=== PATIENT | female | born 1975 | race Hispanic/Latino ===

== ENCOUNTER 2018-11-19 11:23 | Emergency (ER) | payer SELFPAY ==
[2018-11-19 11:41] LABS: APPEARANCE,URINE SL CLOUDY (CLEAR); BILIRUBIN,URINE NEGATIVE (NEGATIVE); COLOR,URINE YELLOW (YELLOW); GLUCOSE, URINE (UA) NEGATIVE (NEGATIVE); KETONES,URINE NEGATIVE (NEGATIVE); LEUKOCYTE ESTERASE ,URINE NEGATIVE (NEGATIVE); NITRATE,URINE NEGATIVE (NEGATIVE); OCCULT BLOOD,URINE LARGE (NEGATIVE); PROTEIN,URINE TRACE mg/dL (NEGATIVE); UROBILINOGEN,URINE 0.2 mg/dL (0.2-1.0)
[2018-11-19 11:51] LABS: RBC,URINE TNTC /HPF (0-1); WBC,URINE 0-1 /HPF (0-1)
[2018-11-19 11:52] LABS: BACTERIA,URINE Rare /HPF (None Seen); SQUAMOUS EPITHELIAL CELL,UR Rare /HPF (0-2)
[2018-11-19] MEDS ORDERED: DICYCLOMINE HCL 20 MG TAB ONE (12:03)
[2018-11-19 12:07] LABS: BASOPHILS % (AUTO) 1.1 % (0.0-5.0); EOSINOPHILS % (AUTO) 1.2 % (0.0-8.0); HEMATOCRIT 27.2 % (36-48); LYMPHOCYTES % (AUTO) 29.3 % (21.0-51.0); MEAN CORPUSCULAR VOLUME 63.3 fL (79-99); MONOCYTES % (AUTO) 7.2 % (3.0-13.0); NEUTROPHILS % (AUTO) 61.2 % (40.0-77.0); PLATELET COUNT (AUTO) 499 K/uL (130-400); RED CELL DISTRIBUTION WIDTH 18.9 % (11.0-15.5); WHITE BLOOD COUNT (AUTO) 7.4 K/uL (4.8-10.8)
[2018-11-19 12:33] LABS: INR 0.95 (0.85-1.15); PARTIAL THROMBOPLASTIN TIME 25.2 SEC (26.3-35.5)
[2018-11-19 13:02] LABS: CREATININE 0.5 mg/dL (0.5-1.5); POTASSIUM 3.5 mmol/L (3.5-5.1)
[2018-11-19 13:06] LABS: ALBUMIN 3.5 g/dL (3.5-5.0); BILIRUBIN,TOTAL 0.2 mg/dL (0.2-1.0); TOTAL PROTEIN, SERUM 8.1 g/dL (6.0-8.3)
== END 2018-11-19 14:51 | disposition home or self-care (01) ==
LOC: EDH 11:23
DX: M54.5 Low back pain (principal); R10.9 Unspecified abdominal pain
CPT/HCPCS: 36415; 74176; 80053; 81001; 81025; 83690; 85025; 85610; 85730

== ENCOUNTER 2020-02-26 15:00 | Inpatient (IN) | payer SELFPAY ==
[~2020-02-26] VITALS: Ht 157.5 cm; Wt 70.0 kg
[2020-02-26 16:20] LABS: BASOPHILS % (AUTO) 0.5 % (0.0-5.0); EOSINOPHILS % (AUTO) 1.5 % (0.0-8.0); NUCLEATED RED BLOOD CELLS 0.3 % (0.0-0.19)
[2020-02-26 16:25] LABS: LYMPHOCYTES % (AUTO) 25.5 % (21.0-51.0); MEAN CORPUSCULAR HEMOGLOBIN 15.6 pg (27.0-33.0); MEAN CORPUSCULAR HGB CONC 24.9 g/dL (32.0-36.0); MEAN CORPUSCULAR VOLUME 62.5 fL (79-99); MONOCYTES % (AUTO) 7.2 % (3.0-13.0); NEUTROPHILS % (AUTO) 65.1 % (40.0-77.0); PLATELET COUNT (AUTO) 665 K/uL (130-400); RED BLOOD CELL COUNT(AUTO) 3.15 MIL/uL (4.00-5.50); RED CELL DISTRIBUTION WIDTH 20.9 % (11.0-15.5); WHITE BLOOD COUNT (AUTO) 8.8 K/uL (4.8-10.8)
[2020-02-26 16:29] LABS: HEMATOCRIT 19.7 % (36-48)
[2020-02-26 16:34] LABS: CREATININE 0.5 mg/dL (0.5-1.5); POTASSIUM 3.6 mmol/L (3.5-5.1)
[2020-02-26 16:36] LABS: INR 0.94 (0.85-1.15); PARTIAL THROMBOPLASTIN TIME 21.2 SEC (26.3-35.5); PROTHROMBIN TIME 10.2 SEC (9.6-11.6)
[2020-02-26 16:42] LABS: ALBUMIN 3.6 g/dL (3.5-5.0); BILIRUBIN,TOTAL 0.3 mg/dL (0.2-1.0); TOTAL PROTEIN, SERUM 8.4 g/dL (6.0-8.3)
[2020-02-26 16:55] LABS: APPEARANCE,URINE Cloudy (CLEAR); BILIRUBIN,URINE Negative (NEGATIVE); COLOR,URINE Yellow (YELLOW); GLUCOSE, URINE (UA) Negative (NEGATIVE); KETONES,URINE Trace mg/dL (NEGATIVE); LEUKOCYTE ESTERASE ,URINE Trace (NEGATIVE); NITRATE,URINE Negative (NEGATIVE); OCCULT BLOOD,URINE Large (NEGATIVE); PH,URINE 5.5 (5.0-8.0); PROTEIN,URINE Negative (NEGATIVE); UROBILINOGEN,URINE 0.2 mg/dL (0.2-1.0)
[2020-02-26 17:14] LABS: BACTERIA,URINE Few /HPF (None Seen); MUCUS,URINE Few LPF (None Seen); SQUAMOUS EPITHELIAL CELL,UR Few /HPF (0-2)
[2020-02-26] MEDS: SODIUM CHLORIDE 0.9% 1000ML 1,000 ML IV SCH (19:01)
[2020-02-26] MEDS ORDERED: DIPHENHYDRAMINE HCL 25 MG CAPSULE PO PRN (19:15)
[2020-02-26] MEDS ORDERED: SODIUM CHLORIDE 0.9% 1000ML 1,000 ML IV SCH (19:15)
[2020-02-26] MEDS ORDERED: ACETAMINOPHEN 325 MG TAB PO PRN (19:15)
[2020-02-26] MEDS ORDERED: ONDANSETRON HCL 4 MG/2 ML VIAL IV PRN (19:15)
[2020-02-26] MEDS ORDERED: NITROGLYCERIN 0.4 MG SL TAB SL PRN (19:15)
[2020-02-26] MEDS: FAMOTIDINE 20MG TAB 20 MG TAB PO SCH (21:00)
[2020-02-26 21:08] LABS: % IRON SATURATION 2.4 % (22-44)
[2020-02-26 22:32] VITALS: BP 134/87
--- NOTE | 2020-02-26 22:45 | NUR ---
Admission Assessment Received pt from ED per celine, with 1st unit PRBC # [id number] infusing well.Routine admission assessment done, plan of care discuss, made aware that due to her low H&H she will be transfused of 2 units PRBC. Per pt stated that that she started to have vaginal bleeding with big clots last February 06, but 3 days ago it slowed down. Pt made aware that she has a consult with Dr. Larsen in AM, pt had complained of dull headache, will be medicated with Tylenol. Pt claimed no medical history except for a C section x3, declined any type of vaccinations. Pt claimed does not take any medications.
[2020-02-26] MEDS: ACETAMINOPHEN 325 MG TAB PO PRN (23:03)
[2020-02-26 23:14] LABS: CREATINE KINASE, TOTAL 37 U/L (21-232); MYOGLOBIN 13 ng/mL (10-92)
--- NOTE | 2020-02-26 23:45 | NUR ---
MD Patricia Wolff in,seen & examined pt, made aware that consult with Dr. Larsen reported for the morning, updated pt is due for her 2nd unit PRBC.
--- NOTE | 2020-02-27 00:15 | NUR ---
Re: Blood transfusion 1st unit PRBC completed at this time, followed with 2nd unit # [id number] run at 125cc/hr. VS remain to be stable.
--- NOTE | 2020-02-27 03:05 | NUR ---
Re: Blood Transfusion 2nd unit PRBC completed at this time with no reactions noted, well tolerated.
[2020-02-27 03:06] VITALS: BP 112/73
[2020-02-27 06:14] LABS: HEMATOCRIT 24.4 % (36-48); MEAN CORPUSCULAR HEMOGLOBIN 19.2 pg (27.0-33.0); MEAN CORPUSCULAR HGB CONC 28.7 g/dL (32.0-36.0); MEAN CORPUSCULAR VOLUME 66.8 fL (79-99); NUCLEATED RED BLOOD CELLS 0.6 % (0.0-0.19); PLATELET COUNT (AUTO) 482 K/uL (130-400); RED BLOOD CELL COUNT(AUTO) 3.65 MIL/uL (4.00-5.50); RED CELL DISTRIBUTION WIDTH 21.6 % (11.0-15.5); WHITE BLOOD COUNT (AUTO) 6.3 K/uL (4.8-10.8)
[2020-02-27] MEDS: SODIUM CHLORIDE 0.9% 1000ML 1,000 ML IV SCH (06:23)
[2020-02-27 06:38] LABS: BILIRUBIN,TOTAL 0.8 mg/dL (0.2-1.0); CREATININE 0.5 mg/dL (0.5-1.5); MAGNESIUM 2.3 mg/dL (1.80-2.40); POTASSIUM 3.6 mmol/L (3.5-5.1); TOTAL PROTEIN, SERUM 6.9 g/dL (6.0-8.3)
[2020-02-27 06:41] LABS: BASOPHILS % (MANUAL) 2 % (0-2); EOSINOPHILS % (MANUAL) 4 % (1-6); LYMPHOCYTES % (MANUAL) 16 % (22-44); MAN.DIFF COMMENT-IMPRESSION MANUAL DIFFERENTIAL; MONOCYTES % (MANUAL) 8 % (2-9); PLATELET MORPHOLOGY COMMENT INCREASED; SEGMENTED NEUTROPHILS % 70 % (40-70)
[2020-02-27 07:59] VITALS: BP 127/71
--- NOTE | 2020-02-27 08:25 | NUR ---
VINH DEUTSCH MD spoke with will see pt today Addendum: 02/27/20 at 0846 by MELISSA MADERA RN RN Amended: Links added.
[2020-02-27] MEDS ORDERED: COMPOUND IV MISC 1 EACH IVSOLN MISC PRN (08:45)
[2020-02-27] MEDS: FAMOTIDINE 20MG TAB 20 MG TAB PO SCH (09:00)
[2020-02-27] MEDS ORDERED: IRON SUCROSE COMPLEX 100 MG in SODIUM CHLORIDE 0.9% 50 ML IV SCH (09:00)
--- NOTE | 2020-02-27 09:25 | NUR ---
Dr Didi Larsen spoke with pt ,pelvic exam in room new orders given aware of hemoglobin 7.0 hematocrit-25 Addendum: 02/27/20 at 0946 by MELISSA MADERA RN RN Amended: Links added.
[2020-02-27 11:21] VITALS: BP 128/61
--- NOTE | 2020-02-27 14:23 | NUR ---
INITIAL SW spoke with patient. Patient lives with 6 minor children at home. She has no home services or DME. Patient is able to complete ADL's independently and drives. 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 Patient has no PCP. She goes to [place] when she needs to go see a doctor. Pharmacy is [facility] located on [address] [place] [address] in [place]. DCP is home. Patient has no insurance or benefits. She is not a [place] citizen but is a legal resident. Patient was educated on [employer] $4 medication program and [employer] $5 medication program. Patient is being assisted by [email or web address] for financial matters. Addendum: 02/27/20 at 1426 by JULIAN CORTES Amended: Links added.
[2020-02-27] MEDS: ACETAMINOPHEN 325 MG TAB PO PRN (15:56)
[2020-02-27 17:12] VITALS: BP_SYST 108; BP_SYST 133; BP_DIAS 65; BP_DIAS 77
[2020-02-27] MEDS ORDERED: NORG1TAB65 PO (17:48)
== END 2020-02-27 18:29 | disposition home or self-care (01) | DRG 760 ==
LOC: EDH 15:00 → EDHIP 15:01 → 3DH 21:16
PROVIDERS: ADMIT Family Medicine; ATTEND Family Medicine
PROC: 30233N1 Transfusion of Nonautologous Red Blood Cells into Peripheral Vein, Percutaneous Approach (ICD-10-PCS; principal; 2020-02-26)
DX: D25.9 Leiomyoma of uterus, unspecified (principal); D62 Acute posthemorrhagic anemia; N92.0 Excessive and frequent menstruation with regular cycle; N92.1 Excessive and frequent menstruation with irregular cycle; D50.9 Iron deficiency anemia, unspecified; Z87.11 Personal history of peptic ulcer disease; Z98.891 History of uterine scar from previous surgery; Z82.49 Family history of ischemic heart disease and other diseases of the circulatory system
CPT/HCPCS: 36415; 36430; 71045; 76856; 80053; 81001; 82550; 82728; 83540; 83550; 83735; 83874; 84484; 84702; 85014; 85018; 85025; 85610; 85730; 86850; 86900; 86901; 86922; 93005; G0378; J1756; J7030; P9016

== ENCOUNTER 2020-03-13 16:25 | Emergency (ER) | payer OTHER, SELFPAY | END 2020-03-13 18:02 | disposition home or self-care (01) | LOC: EDH 16:25 | DX: U07.1 COVID-19 (principal); J12.89 Other viral pneumonia | CPT/HCPCS: 36415; 71045; 80048; 85025; 99284; U0003 ==

== ENCOUNTER 2022-10-01 01:08 | Inpatient (IN) | payer OTHER, SELFPAY ==
[~2022-10-01] VITALS: Ht 157.5 cm; Wt 80.3 kg
[2022-10-01] VITALS (25 sets, daily range): BP systolic 120–147; BP diastolic 70–98
[~2022-10-01 01:08] MED LIST: NORG1TAB65 PO
[2022-10-01 04:09] LABS: BASOPHILS % (AUTO) 1.1 % (0.0-5.0); EOSINOPHILS % (AUTO) 1.9 % (0.0-8.0); HEMATOCRIT 24.4 % (36-48); LYMPHOCYTES % (AUTO) 23.3 % (21.0-51.0); MEAN CORPUSCULAR HEMOGLOBIN 17.4 pg (27.0-33.0); MEAN CORPUSCULAR HGB CONC 26.6 g/dL (32.0-36.0); MEAN CORPUSCULAR VOLUME 65.4 fL (79-99); MONOCYTES % (AUTO) 6.6 % (3.0-13.0); NEUTROPHILS % (AUTO) 66.5 % (40.0-77.0); NUCLEATED RED BLOOD CELLS 0.3 % (0.0-0.19); PLATELET COUNT (AUTO) 456 K/uL (130-400); RED BLOOD CELL COUNT(AUTO) 3.73 MIL/uL (4.00-5.50); RED CELL DISTRIBUTION WIDTH 19.9 % (11.0-15.5); WHITE BLOOD COUNT (AUTO) 9.4 K/uL (4.8-10.8)
[2022-10-01 04:14] LABS: CARBON DIOXIDE 23 mmol/L (21-32); CHLORIDE 103 mmol/L (101-111); CREATININE 0.6 mg/dL (0.5-1.5); GLOMERULAR FILTR. RATE CALC 115 mL/min (>60); GLUCOSE,RANDOM 153 mg/dL (70-105); POTASSIUM 3.8 mmol/L (3.5-5.1); SODIUM SERUM 135 mmol/L (136-145); UREA NITROGEN, BLOOD 6 mg/dL (7-18)
[2022-10-01 04:18] LABS: ALANINE AMINOTRANSFERASE 20 U/L (12-78); ALBUMIN 2.9 g/dL (3.5-5.0); ASPARTATE AMINOTRANSFERASE 11 U/L (10-37); TOTAL PROTEIN, SERUM 7.6 g/dL (6.0-8.3)
[2022-10-01 04:27] LABS: INR 0.93 (0.85-1.15); PROTHROMBIN TIME 10.2 SEC (9.6-11.6)
[2022-10-01 04:28] LABS: PARTIAL THROMBOPLASTIN TIME 21.4 SEC (26.3-35.5)
[2022-10-01 04:29] LABS: ALCOHOL, BLOOD < 3 mg/dL (0-10)
[2022-10-01 04:30] LABS: AMPHET/METH SCREEN,URINE NEGATIVE (NEGATIVE); BARBITURATE SCREEN, URINE NEGATIVE (NEGATIVE); BENZODIAZEPINES SCREEN,URINE NEGATIVE (NEGATIVE); CANNABINOID SCREEN,URINE NEGATIVE (NEGATIVE); COCAINE SCREEN,URINE NEGATIVE (NEGATIVE); OPIATE SCREEN,URINE NEGATIVE (NEGATIVE); PHENCYCLIDINE SCREEN,URINE NEGATIVE (NEGATIVE)
[2022-10-01] MEDS ORDERED: ACETAMINOPHEN 325 MG TAB PO ONE (04:30)
[2022-10-01 04:52] LABS: APPEARANCE,URINE CLOUDY (CLEAR); BILIRUBIN,URINE NEGATIVE (NEGATIVE); COLOR,URINE BROWN (YELLOW); GLUCOSE, URINE (UA) NEGATIVE (NEGATIVE); KETONES,URINE NEGATIVE (NEGATIVE); LEUKOCYTE ESTERASE ,URINE 500 Leu/uL (NEGATIVE); NITRATE,URINE NEGATIVE (NEGATIVE); OCCULT BLOOD,URINE LARGE (NEGATIVE); PH,URINE 6.5 (5.0-8.0); PROTEIN,URINE 30 mg/dL (NEGATIVE); UROBILINOGEN,URINE 0.2 mg/dL (0.2-1.0)
[2022-10-01 05:00] LABS: BACTERIA,URINE FEW /HPF (None Seen); MUCUS,URINE RARE LPF (None Seen); RBC,URINE TNTC /HPF (0-1); SQUAMOUS EPITHELIAL CELL,UR RARE /HPF (0-2); WBC,URINE TNTC /HPF (0-1)
[2022-10-01] MEDS ORDERED: ACETAMINOPHEN WITH CODEINE 1 TAB TAB PO PRN (05:00)
[2022-10-01] MEDS ORDERED: ONDANSETRON 4MG INJ IV PRN (05:00)
[2022-10-01] MEDS ORDERED: 0.9%NACL 1000ML 1,000 ML IV SCH (05:00)
[2022-10-01] MEDS ORDERED: MAG/ALUM/SIMETH 30 ML UDCUP PO PRN (05:00)
[2022-10-01] MEDS ORDERED: GUAIFENESIN-DM 200/20 MG 10 ML PO PRN (05:00)
[2022-10-01] MEDS ORDERED: DIPHENHYDRAMINE HCL 25 MG CAPSULE PO PRN (05:00)
[2022-10-01] MEDS ORDERED: ACETAMINOPHEN 325 MG TAB PO PRN (05:00)
[2022-10-01] MEDS ORDERED: LACTULOSE 20 GM/30 ML UDCUP PO PRN (05:00)
[2022-10-01 05:41] LABS: PLATELET MORPHOLOGY LARGE PLTS PRESENT
[2022-10-01] MEDS: CEFTRIAXONE 1G VIAL IVP SCH (05:55)
[2022-10-01 06:03] LABS: RETICULOCYTE % (AUTO) 3.65 % (0.42-2.23)
[2022-10-01 08:03] LABS: % IRON SATURATION 2.2 % (22-44)
[2022-10-01] MEDS: FAMOTIDINE 20MG VIAL IV SCH (09:00)
[2022-10-01 10:05] LABS: HEMATOCRIT 26.7 % (36-48)
[2022-10-01] MEDS ORDERED: PROMETHAZINE HCL 25 MG/ML 1ML AMPULE IM ONE (11:53)
[2022-10-01] MEDS ORDERED: MEPERIDINE-PF 50 MG/ML SYG ONE (11:54)
[2022-10-01] MEDS ORDERED: TRANEXAMIC ACID 1000MG/10ML ONE (12:14)
[2022-10-01] MEDS ORDERED: ONDANSETRON 4MG INJ ONE (13:38)
[2022-10-01] MEDS ORDERED: CEFAZOLIN SODIUM 1 GM VIAL ONE (14:25)
[2022-10-01] MEDS ORDERED: CEFAZOLIN SODIUM 2 GM VIAL IV ONE (14:27)
[2022-10-01] MEDS ORDERED: METHYLERGONOVINE MALEATE 0.2 MG/1 ML ML ONE (14:30)
[2022-10-02] MEDS: FAMOTIDINE 20MG VIAL IV SCH ×2 (01:05→08:34)
[2022-10-02 03:30] VITALS: BP 135/72
[2022-10-02 04:20] LABS: BASOPHILS % (AUTO) 0.7 % (0.0-5.0); EOSINOPHILS % (AUTO) 3.7 % (0.0-8.0); HEMATOCRIT 28.8 % (36-48); LYMPHOCYTES % (AUTO) 22.6 % (21.0-51.0); MEAN CORPUSCULAR HEMOGLOBIN 20.8 pg (27.0-33.0); MEAN CORPUSCULAR HGB CONC 29.5 g/dL (32.0-36.0); MEAN CORPUSCULAR VOLUME 70.6 fL (79-99); MONOCYTES % (AUTO) 7.4 % (3.0-13.0); NEUTROPHILS % (AUTO) 65.2 % (40.0-77.0); NUCLEATED RED BLOOD CELLS 0.5 % (0.0-0.19); PLATELET COUNT (AUTO) 385 K/uL (130-400); RED BLOOD CELL COUNT(AUTO) 4.08 MIL/uL (4.00-5.50); RED CELL DISTRIBUTION WIDTH 23.4 % (11.0-15.5); WHITE BLOOD COUNT (AUTO) 7.6 K/uL (4.8-10.8)
[2022-10-02 04:41] LABS: ALBUMIN 2.7 g/dL (3.5-5.0); CREATININE 0.6 mg/dL (0.5-1.5); POTASSIUM 3.7 mmol/L (3.5-5.1); TOTAL PROTEIN, SERUM 7.1 g/dL (6.0-8.3)
[2022-10-02] MEDS: CEFTRIAXONE 1G VIAL IVP SCH (05:20)
[2022-10-02 07:26] VITALS: BP 129/85
[2022-10-02 11:54] VITALS: BP 132/80
== END 2022-10-02 12:50 | disposition home or self-care (01) | DRG 746 ==
LOC: EDH 01:08 → EDHIP 01:09 → WSH 10:45
PROVIDERS: ADMIT Hospitalist; ATTEND Hospitalist
PROC: 30233N1 Transfusion of Nonautologous Red Blood Cells into Peripheral Vein, Percutaneous Approach (ICD-10-PCS; 2022-10-01)
PROC: 0UBC0ZZ Excision of Cervix, Open Approach (ICD-10-PCS; principal; 2022-10-01 13:00)
DX: N84.1 Polyp of cervix uteri (principal); E43 Unspecified severe protein-calorie malnutrition; E87.1 Hypo-osmolality and hyponatremia; D62 Acute posthemorrhagic anemia; N39.0 Urinary tract infection, site not specified; Z20.822 Contact with and (suspected) exposure to COVID-19; K64.9 Unspecified hemorrhoids; N92.0 Excessive and frequent menstruation with regular cycle; Z98.891 History of uterine scar from previous surgery; Z68.32 Body mass index [BMI] 32.0-32.9, adult
CPT/HCPCS: 36415; 74177; 76857; 80053; 80305; 81001; 82607; 82728; 83735; 85014; 85018; 85025; 85610; 85730; 86850; 86900; 86901; 86923; 87088; 87635; 96374; 99291; G0378; J0690; J0696; J2175; J2210; J2405; J2550; J3490; J7030; P9016; Q0163